=== PATIENT | male | born 1975 | race Caucasian/White ===

== ENCOUNTER 2024-09-11 09:09 | Outpatient (CLI) | payer OTHER, SELFPAY ==
--- NOTE | 2024-09-11 | ECG_ITS ---
[facility] Test Date: 2024-09-11 Pat Name: eJd Carreon Department: Room: Gender: Male [employer] Former: : 1975 Requested By: Brenden Thomas Order Number: [id number] Sarah MD: LALO HERRERA Interpretive Statements Lung unchanged pre/post procedure; Intraprocedure shortess of breath; Symptoms resoled by discharge EXERCISE DATA: The patient was exercised by Hugo protocol. Baseline heart rate was 80 beats per minute. Baseline blood pressure was 132/67 millimeters of mercury. Target heart rate was 173 beats per minute. Maximum heart rate achieved was 158, which was 91 % of the target heart rate. Maximum blood pressure was 195/95 millimeters of mercury. Total exercise time was 9 minutes. Maximum METs achieved was 10.2, maximum VO2 was 35.7. The reason for ending the test was maximum effort achieved. The patient complained of shortness of breath during the stress test, which then resolved at the end of the test. ELECTROCARDIOGRAM: BASELINE: Showed sinus rhythm, normal axis, nonspecific inferior ST-T changes at the baseline noted. EXERCISE: At the peak exercise level, no significant ST-T changes suggestive of ischemia noted. RECOVERY: During the recovery period, heart rate dropped appropriately. No significant ST-T changes in the recovery suggestive of ischemia noted. CONCLUSION: 1. Exercise capacity good. 2. Heart rate response was appropriate. 3. Blood pressure response was appropriate. 4. Symptoms not suggestive of ischemia. 5. Electrocardiogram portion of the stress test was not suggestive of ischemia. 6. Nuclear scan will be documented separately. Electronically Signed On 09-19-2024 18:40:49 CDT by LALO HERRERA [email or web address]
--- NOTE | 2024-09-11 09:42 | NMCV_ITS ---
NM natasha perf SPECT r/s* [id number] Jed Carreon Age: 49 Gender: M : 1975 Exam Date: 09/11/2024 10:10 Ordering Phys: Brenden Thomas (ER USE) DO Technologist: YESSICA Ortiz Exam Location: [facility] Indications: cp STRESS TEST Please see separate stress test report in [facility] for full findings IMAGE PROTOCOL Rest/Stress 1 Exercise Day Radiopharmaceutical Dose (mCi) Administration Site Administered by Rest: Tc-99m 10.6 IV YESSICA Ortiz Sestamibi Stress:Tc-99m 32.8 IV YESSICA Londono Sestamibi Rest: 11-Sep-2024 60 Discovery 630 Stress: 11-Sep-2024 30 Discovery 630 Radiopharmaceutical was injected at 86 % maximum heart rate. Images obtained in supine and prone position. SPECT RESULTS Technical Quality: Good Raw Data Analysis: Normal Image Corrections: No attenuation or motion correction applied Summed Stress Score: 0 Summed Rest Score: 3 Summed Difference Score: 0 PERFUSION FINDINGS SPECT images demonstrate homogeneous tracer distribution throughout the myocardium. FUNCTIONAL RESULTS (calculated via Gated SPECT) Stress Image LV EF (%): 63 Stress EDV (mL):136 TID: 0.76 Stress ESV (mL):51 FUNCTIONAL FINDINGS: There is normal left ventricular systolic function. IMPRESSIONS Myocardial perfusion imaging is normal. Louisa Olmos MD (Electronically Signed) Final Date: 19 Sep 2024 12:25 S
[2024-09-11 09:43] VITALS: BMI 33.9
[2024-09-11 11:06] VITALS: BP 130/93; PULSE 96
== END 2024-09-11 09:10 | disposition home or self-care (01) ==
LOC: CDL 09:15
PROVIDERS: PCP Electrodiagnostic Medicine; Visit Provider Electrodiagnostic Medicine
DX: R07.9 Chest pain, unspecified (principal)
CPT/HCPCS: 36415; 78452; 93017; 96374; A9500